=== PATIENT | male | born 1945 | race Caucasian/White ===

== ENCOUNTER 2018-01-22 16:17 | Inpatient (IN) ==
[2018-01-22] MEDS ORDERED: Nitroglycerin 0.4 MG TAB.SUBL SL PRN (17:07)
[2018-01-22] MEDS ORDERED: Ipratropium/Albuterol Neb 3 ML IH PRN (17:09)
[2018-01-22] MEDS ORDERED: Cyanocobalamin (B-12) 1,000 MCG/ML VIAL IM ONE (17:14)
[2018-01-22] MEDS ORDERED: NIVOLUMAB 100 MG/10 ML IV SCH (17:30)
[2018-01-22] MEDS: Insulin LISPRO 300 UNITS/3 ML VIAL SQ SCH (20:46)
[2018-01-22] MEDS: Azelastine 0.1% Nasal Spray 30 ML BOTTLE NS SCH (20:56)
[2018-01-22] MEDS: OLOPATADINE AER SCH (22:37)
[2018-01-23] MEDS: Aspirin 81 MG TAB.CHEW PO SCH (08:18)
[2018-01-23] MEDS: predniSONE 20 MG TABLET PO SCH (08:18)
[2018-01-23] MEDS: Cholecalciferol (D-3) 1,000 UNIT TABLET PO SCH (08:18)
[2018-01-23] MEDS: Metoprolol XL (24 HR) Succ 50 MG TAB.ER.24H PO SCH (08:18)
[2018-01-23] MEDS: levoFLOXacin 500 MG TABLET PO SCH (08:18)
[2018-01-23] MEDS: Azelastine 0.1% Nasal Spray 30 ML BOTTLE NS SCH ×2 (08:18→20:38)
[2018-01-23] MEDS: SAXAGLIPTIN PO SCH (08:19)
[2018-01-23] MEDS: OLOPATADINE AER SCH ×2 (08:19→20:41)
[2018-01-23] MEDS: Insulin LISPRO 300 UNITS/3 ML VIAL SQ SCH ×2 (08:20→20:37)
[2018-01-23] MEDS: Insulin DETEMIR 100 UNIT/ML X5UNITS SQ SCH (08:20)
--- NOTE | 2018-01-23 16:16 | Internal Med History&Physical ---
Date of Encounter: 01/23/18 Time of Encounter: 15:30 Assessment and Plan (1) STEMI (ST elevation myocardial infarction) Current visit: No Status: Acute Continue aspirin and Plavix. Will add Imdur Qualifiers: Involved coronary artery: unspecified coronary artery Qualified Code(s): I21.3 - ST elevation (STEMI) myocardial infarction of unspecified site (2) Hypophosphatemia Current visit: Yes Status: Acute Phosphorus level was 2.1 on 01/20/2018. Recheck in a.m. (3) Macrocytic anemia Current visit: No Status: Chronic Order anemia testing in a.m. (4) Non-small cell cancer of right lung Current visit: No Status: Chronic As per oncologist. (5) PAF (paroxysmal atrial fibrillation) Current visit: No Status: Acute Withhold anticoagulation secondary to lung cancer and recent bleed. Continue aspirin and Plavix. (6) EL treated with BiPAP Current visit: No Status: Acute Continue BiPAP. (7) Physical deconditioning Current visit: Yes Status: Acute He will have PT and OT evaluations ongoing intervention. 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 Continue oxygen 30/11. (9) DM type 2 (diabetes mellitus, type 2) Current visit: Yes Status: Chronic Hemoglobin A1c was 10.5% on 01/17/2018. Continue Lantus/Levemir and do Accu- Cheks with SSI. Qualifiers: Diabetes mellitus senior living insulin use: with terminal operations supervisor use Diabetes mellitus complication status: with unspecified complications Qualified Code(s) : E11.8 - Type 2 diabetes mellitus with unspecified complications; Z79.4 - care home (current) use of insulin (10) Gout Current visit: Yes Status: Chronic Check uric acid level in a.m. Qualifiers: Gout site: unspecified site Gout etiology: unspecified cause Chronicity: chronic Presence of tophus: without tophus Qualified Code(s): M1A.9XX0 - Chronic gout, unspecified, without tophus (tophi) (11) Elevated brain natriuretic peptide (BNP) level Current visit: Yes Status: Acute Elevated at 326 on 02/15/2015. Recheck in a.m. Internal Medicine - H&P: HPI Chief complaint: STEMI, weakness Admitted From: Hospital to Hospital Transfer Plans for Post Hospital Care: Home History of present illness: Mr. Roldan is a 72 year old male who was hospitalized at [facility] January 17 after presenting with STEMI. He underwent LHC which showed thrombus causing 60 % stenosis in the SVG to RPDA graft. The LIND to mid LAD was patent. The SVG to first marginal was patent. [place] vessels showed 70% stenosis in LMCA, 50% stenosis in proximal circumflex, and 100% stenoses in proximal RCA and proximal LAD. He was given IV Aggrastat for 24 hours and continued on Brilinta. No additional intervention was done. He had an 18 beat run of NSVT. Following stabilization he was transferred to [facility] swing bed for rehabilitation therapy. He had 3 vessel CABG 2001. He reports 2 coronary stents were placed in 1999. He had DVT and was on anticoagulation following the CABG surgery. He has paroxysmal atrial fibrillation and was on Eliquis but this is been discontinued because of lung cancer and recent hematuria. Echocardiogram was attempted during recent [facility] stay but there was poor visualization overall. LV systolic function appeared grossly normal although multiple LV wall segments were not well visualized. Past Med Surg Social Fam HX - Past Medical History Medical history: cancer, coronary artery disease, DVT, diabetes, hyperlipidemia , hypertension, migraine, myocardial infarction, other Additional medical history: EL Psychiatric history: no psych history - Past Surgical History Surgical History: cataract, coronary bypass (CABG), orthopedic, other, other Additional surgical history: cardioversion. cardiac ablation. tonsillectomy - Social History Smoking Status: Former smoker Smokeless Tobacco Status: No Alcohol use: none, recent Drug use: none - Family History Mother Adopted: Yes Family Member Ethnicity: Non- Living Status: Hx Family Cardiac Disorders: No Hx Family Respiratory Disorders: No Hx Family Cancer: Yes (ovarian/uterine) Hx Family GI Disorders: Yes (diverticulitis) Hx Family Endocrine Disorder: No Hx Family Neuromuscular Disorders: No Hx Family Neurologic Disorders: No Hx Family HEENT Disorders: No Hx Family Autoimmune Disorders: Yes (psoriasis) Internal Medicine - H&P: Meds Nitroglycerin [Nitrostat] 0.4 mg SL PRN PRN 03/25/15 [History] Ergocalciferol (VITAMIN D2) [Vitamin D2 (50,000 UNIT)] 50,000 unit PO QWEEK [History] Aspirin 81 mg PO DAILY 09/23/15 [History] Cyanocobalamin (B-12) [Vitamin B12] 1,000 mcg IM QMONTH 07/23/16 [History] Insulin Lispro Protamin/Lispro [Humalog Mix 75-25 Vial] 12 unit SQ QAM 07/23/16 [History] Insulin Lispro Protamin/Lispro [Humalog Mix 75-25 Vial] 12 unit SQ QPM 07/23/16 [History] Ipratropium/Albuterol Neb [Duoneb] 3 ml IH Q6HR PRN 07/23/16 [History] Saxagliptin HCl [Onglyza] 2.5 mg PO DAILY 07/23/16 [History] Insulin Glargine,Hum.rec.anlog [Lantus Solostar] 42 unit SQ QAM 01/12/17 [ History] Azelastine 0.1% Nasal [place] [Astelin] 1 puff NS BID 11/16/17 [History] Oxycodone HCl/Acetaminophen [Percocet 5-325 mg Tablet] 1 each PO Q6HR PRN [History] Albuterol Sulfate [Ventolin Hfa] 2 puff IH Q6H PRN 01/18/18 [History] Levothyroxine [Synthroid] 150 mcg PO DAILY #30 tablet 01/18/18 [Rx] Nivolumab [Opdivo] 40 mg IV QMONTH 01/18/18 [History] Olopatadine HCl [Patanase] 30.5 gm NS BID 01/18/18 [History] Clopidogrel [Plavix] 75 mg PO DAILY tablet 01/22/18 [Rx] levoFLOXacin [Levaquin] 500 mg PO Q24H #5 tablet 01/22/18 [Rx] predniSONE [PredniSONE] 20 mg PO DAILY 5 Days tablet 01/22/18 [Rx] Bumetanide [Bumex] 2 mg PO BID 01/23/18 [History] Metoprolol XL (24 HR) Succ [Toprol Xl] 200 mg PO DAILY 01/23/18 [History] 3 Allergy/AdvReac Type Severity Reaction Status Date / Time Amoxicillin Allergy Hives Verified 01/17/18 18:39 adhesive AdvReac Rash Verified 01/17/18 18:39 All Systems PM: A 10-system review of systems was performed and is negative for pertinent findings except as documented above in the HPI. Review of systems: Gen.: His weight has been stable the past few months Cardiovascular: As per history of present illness Respiratory: He smoked from approximately age [age] up to one pack per day. PFTs done 07/10/2016 reportedly showed severe airway restrictive disease with severe decrease in DLCO. Raw test data results are not available. He has been diagnosed with interstitial lung disease and is on oxygen 30/11. He has been diagnosed with EL and uses CPAP at bedtime and when necessary during the daytime. He was diagnosed with non-small cell lung cancer October 2015. He received treatment but recently learned that tumor has recurred and has metastasized to liver. GI: He denies disorders of liver gallbladder or exocrine pancreas otherwise. : He had recent hematuria and will follow with urology as an outpatient. He has indwelling Duvall catheter at this time. He denies other kidney bladder prostate disorders. Neurologic: He has diabetic peripheral neuropathy. He denies large distribution strokes or seizures. Endocrine: He was diagnosed with DM 2 1996. He has hypothyroidism. He has hyperlipidemia but cannot tolerate numerous medications. Hematology/oncology: He has non-small cell lung cancer as per above. He has anemia. He denies other malignancies or blood disorders. Psychiatric: He denies anxiety depression or other mental health issues. [place] skeletal: He has DJD and history of gout. He denies other bone joint or muscle disorders. - Constitutional Vitals: Temp Pulse Resp BP Pulse Ox 97.8 F 84 18 139/72 97 01/23/18 08:15 01/23/18 08:15 01/23/18 09:07 01/23/18 08:15 01/23/18 09:07 Exam: Gen.: He is well-developed morbidly obese male lying in bed who appears slightly dyspneic at rest HEENT: Head is atraumatic and normocephalic. Eyes: EOMI. There is no scleral icterus. Mouth: Mucosa is moist. Neck: Supple and nontender. There is no thyromegaly or adenopathy noted. Heart: Regular without murmurs gallops or ectopics. Lungs: No wheezes or crackles are heard. Abdomen: He has a large abdomen. It is nontender to palpation. Extremities: He has chronic venous stasis erythema of his lower legs. Dorsalis pedis and posttibial pulses are trace palpable bilaterally. He has mild DJD changes of his hands. He has multiple ecchymosis scattered on his extremities. Neurologic: Mental status: He is talkative and a good historian. Cranial nerves : Smile is symmetric. Forehead wrinkles bilaterally. Tongue protrudes midline. EOMI. Motor: There is no pronator drift. Cerebellar: Finger to nose is intact bilaterally. Skin: Warm and dry
[2018-01-24 07:01] LABS: Basophils # 0.1 K/mcL (0.0-0.2); Basophils % 0.8 %; Eosinophils # 0.4 K/mcL (0.0-0.6); Eosinophils % 3.5 %; Hematocrit 37.7 % (37.5-50.1); Hemoglobin 12.1 g/dL (12.9-16.9); Immature Granulocytes % 1.5 % (0-4); Lymphocytes % 18.6 %; Mean Corpuscular HGB Conc 32.1 g/dL (31.6-35.5); Mean Corpuscular Volume 96.7 fL (83.0-100.0); Mean Platelet Volume 8.7 fL (9.4-12.4); Monocytes # 1.2 K/mcL (0.0-1.3); Monocytes % 11.5 %; Neutrophils # 6.8 K/mcL (1.6-8.9); Nucleated Red Blood Cells 0.4 /100 WBC (0); Platelet Count 465 K/mcL (140-400); Red Cell Distribution Width 16.1 % (11.5-14.5); Segmented Neutrophils % 64.1 %
[2018-01-24 07:39] LABS: Phosphorous 2.4 mg/dL (2.7-4.5); Uric Acid 4.3 mg/dL (2.3-7.6)
[2018-01-24] MEDS: Metoprolol XL (24 HR) Succ 50 MG TAB.ER.24H PO SCH (09:18)
[2018-01-24] MEDS: Aspirin 81 MG TAB.CHEW PO SCH (09:18)
[2018-01-24] MEDS: Isosorbide MONOnitrate (24 HR) 30 MG TAB.ER.24H PO SCH (09:19)
[2018-01-24] MEDS: levoFLOXacin 500 MG TABLET PO SCH (09:19)
[2018-01-24] MEDS: predniSONE 20 MG TABLET PO SCH (09:19)
[2018-01-24] MEDS: Cholecalciferol (D-3) 1,000 UNIT TABLET PO SCH (09:19)
[2018-01-24] MEDS: Insulin LISPRO 300 UNITS/3 ML VIAL SQ SCH ×2 (09:19→20:59)
[2018-01-24] MEDS: Azelastine 0.1% Nasal Spray 30 ML BOTTLE NS SCH ×2 (09:19→21:36)
[2018-01-24] MEDS: OLOPATADINE AER SCH ×2 (09:20→21:00)
[2018-01-24] MEDS: SAXAGLIPTIN PO SCH (09:20)
[2018-01-24] MEDS: Insulin DETEMIR 100 UNIT/ML X5UNITS SQ SCH (09:20)
[2018-01-24 09:55] LABS: Folate 12.9 ng/mL (3.0-16.0)
[2018-01-24 10:20] LABS: Vitamin B12 > 1500 pg/mL (250-1100)
[2018-01-24] MEDS: *HR* OxyCODONE/APAP 5/325 TABLET PO PRN ×2 (15:19→21:35)
--- NOTE | 2018-01-24 18:27 | Internal Med Progress Note ---
Date of Encounter: 01/24/18 Time of Encounter: 18:20 - Assessment and plan (1) STEMI (ST elevation myocardial infarction) Current Visit: No Status: Acute Assessment and plan: January 24. Continue aspirin, Plavix, and now Imdur. Qualifiers: Involved coronary artery: unspecified coronary artery Qualified Code(s): I21.3 - ST elevation (STEMI) myocardial infarction of unspecified site (2) Hypophosphatemia Current Visit: Yes Status: Acute Assessment and plan: January 24. Improved to 2.4. Continue to monitor as needed. (3) Macrocytic anemia Current Visit: No Status: Chronic Assessment and plan: January 24. Anemia testing showed iron 61, transferrin saturation 25%, transferrin 174, ferritin 310, B12 > 1500, and folate 12.9. Hemoglobin improved to 12.1. Continue to monitor as needed. (4) Non-small cell cancer of right lung Current Visit: No Status: Chronic Assessment and plan: January 24. As per oncologist. (5) PAF (paroxysmal atrial fibrillation) Current Visit: No Status: Acute Assessment and plan: January 24. Continue aspirin and Plavix. (6) EL treated with BiPAP Current Visit: No Status: Acute Assessment and plan: January 24. Continue BiPAP (7) Physical deconditioning Current Visit: Yes Status: Acute Assessment and plan: January 24. Continue therapy intervention. (8) Interstitial lung disease Current Visit: Yes Status: Acute Assessment and plan: January 24. Continue oxygen 30/11. (9) DM type 2 (diabetes mellitus, type 2) Current Visit: Yes Status: Chronic Assessment and plan: January 24. Continue Lantus/Levemir and Accu-Cheks with SSI. Qualifiers: Diabetes mellitus prison insulin use: with oysterman use Diabetes mellitus complication status: with unspecified complications Qualified Code(s) : E11.8 - Type 2 diabetes mellitus with unspecified complications; Z79.4 - assisted (current) use of insulin (10) Gout Current Visit: Yes Status: Chronic Assessment and plan: January 24. Uric acid level normal at 4.3. Qualifiers: Gout site: unspecified site Gout etiology: unspecified cause Chronicity: chronic Presence of tophus: without tophus Qualified Code(s): M1A.9XX0 - Chronic gout, unspecified, without tophus (tophi) (11) Elevated brain natriuretic peptide (BNP) level Current Visit: Yes Status: Acute Assessment and plan: January 24. Improved at 236. Continue present management - Subjective Interval history: January 24. He has no new complaints and feels well. - Constitutional Vitals: Temp Pulse Resp BP Pulse Ox 98.5 F 77 12 131/81 95 01/24/18 07:22 01/24/18 07:22 01/24/18 17:08 01/24/18 07:22 01/24/18 17:08 Exam: He is resting comfortably sitting on the side of bed. His affect is bright and cheerful. I reviewed his medications and lab results. Internal Medicine: Result - Labs CBC & Chem 7: 01/24/18 06:51 Labs: Short CBC 01/24/18 Range/Units 06:51 WBC 10.7 (4.3-11.1) K/mcL Hgb 12.1 L (12.9-16.9) g/dL Hct 37.7 (37.5-50.1) % Plt Count 465 H (140-400) K/mcL Neutrophils # 6.8 (1.6-8.9) K/mcL Consult Discharge Plan - Plan Referrals: Kd Moore [Primary Care Provider] - 1 week
[2018-01-25] MEDS: *HR* OxyCODONE/APAP 5/325 TABLET PO PRN ×3 (05:35→21:29)
[2018-01-25] MEDS: Aspirin 81 MG TAB.CHEW PO SCH (08:39)
[2018-01-25] MEDS: levoFLOXacin 500 MG TABLET PO SCH (08:39)
[2018-01-25] MEDS: Metoprolol XL (24 HR) Succ 50 MG TAB.ER.24H PO SCH (08:39)
[2018-01-25] MEDS: predniSONE 20 MG TABLET PO SCH (08:39)
[2018-01-25] MEDS: Isosorbide MONOnitrate (24 HR) 30 MG TAB.ER.24H PO SCH (08:39)
[2018-01-25] MEDS: SAXAGLIPTIN PO SCH (08:40)
[2018-01-25] MEDS: OLOPATADINE AER SCH ×2 (08:40→21:30)
[2018-01-25] MEDS: Cholecalciferol (D-3) 1,000 UNIT TABLET PO SCH (08:40)
[2018-01-25] MEDS: Azelastine 0.1% Nasal Spray 30 ML BOTTLE NS SCH ×2 (08:40→21:29)
[2018-01-25] MEDS: Insulin LISPRO 300 UNITS/3 ML VIAL SQ SCH ×2 (08:43→21:30)
[2018-01-25] MEDS: Insulin DETEMIR 100 UNIT/ML X5UNITS SQ SCH (08:49)
[2018-01-26] MEDS: Aspirin 81 MG TAB.CHEW PO SCH (09:19)
[2018-01-26] MEDS: Metoprolol XL (24 HR) Succ 50 MG TAB.ER.24H PO SCH (09:19)
[2018-01-26] MEDS: Azelastine 0.1% Nasal Spray 30 ML BOTTLE NS SCH ×2 (09:19→21:11)
[2018-01-26] MEDS: predniSONE 20 MG TABLET PO SCH (09:19)
[2018-01-26] MEDS: Isosorbide MONOnitrate (24 HR) 30 MG TAB.ER.24H PO SCH (09:19)
[2018-01-26] MEDS: levoFLOXacin 500 MG TABLET PO SCH (09:20)
[2018-01-26] MEDS: Cholecalciferol (D-3) 1,000 UNIT TABLET PO SCH (09:20)
[2018-01-26] MEDS: Insulin LISPRO 300 UNITS/3 ML VIAL SQ SCH ×2 (09:23→21:13)
[2018-01-26] MEDS: Insulin DETEMIR 100 UNIT/ML X5UNITS SQ SCH (09:23)
[2018-01-26] MEDS: *HR* OxyCODONE/APAP 5/325 TABLET PO PRN ×2 (09:27→18:53)
[2018-01-26] MEDS: SAXAGLIPTIN PO SCH (11:03)
[2018-01-26] MEDS: OLOPATADINE AER SCH ×2 (11:03→21:15)
--- NOTE | 2018-01-26 17:47 | Internal Med Progress Note ---
Date of Encounter: 01/26/18 Time of Encounter: 17:30 - Assessment and plan (1) STEMI (ST elevation myocardial infarction) Current Visit: No Status: Acute Assessment and plan: January 24. Continue aspirin, Plavix, and now Imdur. Qualifiers: Involved coronary artery: unspecified coronary artery Qualified Code(s): I21.3 - ST elevation (STEMI) myocardial infarction of unspecified site (2) Hypophosphatemia Current Visit: Yes Status: Acute Assessment and plan: January 24. Improved to 2.4. Continue to monitor as needed. (3) Macrocytic anemia Current Visit: No Status: Chronic Assessment and plan: January 24. Anemia testing showed iron 61, transferrin saturation 25%, transferrin 174, ferritin 310, B12 > 1500, and folate 12.9. Hemoglobin improved to 12.1. Continue to monitor as needed. (4) Non-small cell cancer of right lung Current Visit: No Status: Chronic Assessment and plan: January 24. As per oncologist. (5) PAF (paroxysmal atrial fibrillation) Current Visit: No Status: Acute Assessment and plan: January 24. Continue aspirin and Plavix. (6) EL treated with BiPAP Current Visit: No Status: Acute Assessment and plan: January 24. Continue BiPAP (7) Physical deconditioning Current Visit: Yes Status: Acute Assessment and plan: January 24. Continue therapy intervention. (8) Interstitial lung disease Current Visit: Yes Status: Acute Assessment and plan: January 24. Continue oxygen 30/11. (9) DM type 2 (diabetes mellitus, type 2) Current Visit: Yes Status: Chronic Assessment and plan: January 24. Continue Lantus/Levemir and Accu-Cheks with SSI. Qualifiers: Diabetes mellitus halfway insulin use: with oil heaterman use Diabetes mellitus complication status: with unspecified complications Qualified Code(s) : E11.8 - Type 2 diabetes mellitus with unspecified complications; Z79.4 - [facility] (current) use of insulin (10) Gout Current Visit: Yes Status: Chronic Assessment and plan: January 24. Uric acid level normal at 4.3. Qualifiers: Gout site: unspecified site Gout etiology: unspecified cause Chronicity: chronic Presence of tophus: without tophus Qualified Code(s): M1A.9XX0 - Chronic gout, unspecified, without tophus (tophi) (11) Elevated brain natriuretic peptide (BNP) level Current Visit: Yes Status: Acute Assessment and plan: January 24. Improved at 236. Continue present management - Subjective Interval history: January 24. He has no new complaints and feels well. January 26. He has no new complaints and feels overall improved. - Constitutional Vitals: Temp Pulse Resp BP Pulse Ox 97.5 F L 80 18 123/66 95 01/26/18 07:09 01/26/18 07:09 01/26/18 10:31 01/26/18 07:09 01/26/18 10:31 Exam: He is resting Me on the side of bed and appears in no acute distress. The venous stasis erythema has not significantly changed. He does not appear dyspneic. I reviewed his medications and lab results. Internal Medicine: Result - Labs CBC & Chem 7: 01/24/18 06:51 Consult Discharge Plan - Plan Referrals: Kd Moore [Primary Care Provider] - 1 week
[2018-01-26] MEDS: Ammonium Lactate 30 APPL/225 GM BOTTLE TP SCH (21:19)
[2018-01-27 08:34] LABS: Basophils # 0.1 K/mcL (0.0-0.2); Basophils % 0.8 %; Eosinophils # 0.5 K/mcL (0.0-0.6); Eosinophils % 4.6 %; Hematocrit 38.6 % (37.5-50.1); Hemoglobin 12.3 g/dL (12.9-16.9); Immature Granulocytes % 1.6 % (0-4); Lymphocytes % 17.2 %; Mean Corpuscular HGB Conc 31.9 g/dL (31.6-35.5); Mean Corpuscular Hemoglobin 31.4 pg (28.0-33.3); Mean Corpuscular Volume 98.5 fL (83.0-100.0); Monocytes # 1.1 K/mcL (0.0-1.3); Monocytes % 9.9 %; Neutrophils # 7.5 K/mcL (1.6-8.9); Platelet Count 437 K/mcL (140-400); Red Blood Count 3.92 M/mcL (4.19-5.50); Red Cell Distribution Width 16.3 % (11.5-14.5); Segmented Neutrophils % 65.9 %
[2018-01-27 08:35] LABS: Lymphocytes # 1.9 K/mcL (0.6-4.6)
[2018-01-27 08:42] LABS: BUN/Creatinine Ratio 22 (6-26); Blood Urea Nitrogen 18 mg/dL (8-23); Calcium 10.3 mg/dL (8.6-10.3); Carbon Dioxide 33 mEq/L (23-29); Chloride 99 mEq/L (98-107); Glucose 163 mg/dL (70-105); Osmolality,Calculated 293 (280-300); Potassium 3.5 mEq/L (3.5-5.1); Sodium 139 mEq/L (136-145); eGFR For Non-African Americans > 60 (> 60)
[2018-01-27] MEDS: Cholecalciferol (D-3) 1,000 UNIT TABLET PO SCH (09:19)
[2018-01-27] MEDS: predniSONE 20 MG TABLET PO SCH (09:19)
[2018-01-27] MEDS: Metoprolol XL (24 HR) Succ 50 MG TAB.ER.24H PO SCH (09:19)
[2018-01-27] MEDS: Azelastine 0.1% Nasal Spray 30 ML BOTTLE NS SCH ×2 (09:19→21:32)
[2018-01-27] MEDS: Aspirin 81 MG TAB.CHEW PO SCH (09:19)
[2018-01-27] MEDS: Isosorbide MONOnitrate (24 HR) 30 MG TAB.ER.24H PO SCH (09:20)
[2018-01-27] MEDS: *HR* OxyCODONE/APAP 5/325 TABLET PO PRN ×3 (09:20→22:22)
[2018-01-27] MEDS: levoFLOXacin 500 MG TABLET PO SCH (09:21)
[2018-01-27] MEDS: Insulin DETEMIR 100 UNIT/ML X5UNITS SQ SCH (09:22)
[2018-01-27] MEDS: OLOPATADINE AER SCH ×2 (09:22→21:54)
[2018-01-27] MEDS: SAXAGLIPTIN PO SCH (09:22)
[2018-01-27] MEDS: Insulin NPH/REG 70/30 100 UNIT/ML (x5UNIT) SQ SCH ×2 (09:42→09:50)
[2018-01-27] MEDS: Insulin LISPRO 300 UNITS/3 ML VIAL SQ SCH (21:30)
[2018-01-27] MEDS: Ammonium Lactate 30 APPL/225 GM BOTTLE TP SCH (21:33)
[2018-01-28] MEDS: Isosorbide MONOnitrate (24 HR) 30 MG TAB.ER.24H PO SCH (07:56)
[2018-01-28] MEDS: Azelastine 0.1% Nasal Spray 30 ML BOTTLE NS SCH ×2 (07:56→21:36)
[2018-01-28] MEDS: Cholecalciferol (D-3) 1,000 UNIT TABLET PO SCH (07:56)
[2018-01-28] MEDS: Aspirin 81 MG TAB.CHEW PO SCH (07:57)
[2018-01-28] MEDS: levoFLOXacin 500 MG TABLET PO SCH (07:58)
[2018-01-28] MEDS: Metoprolol XL (24 HR) Succ 50 MG TAB.ER.24H PO SCH (07:58)
[2018-01-28] MEDS: predniSONE 20 MG TABLET PO SCH (07:58)
[2018-01-28] MEDS: SAXAGLIPTIN PO SCH (07:58)
[2018-01-28] MEDS: OLOPATADINE AER SCH ×2 (07:58→23:16)
[2018-01-28] MEDS: *HR* OxyCODONE/APAP 5/325 TABLET PO PRN (10:06)
[2018-01-28] MEDS: Insulin NPH/REG 70/30 100 UNIT/ML (x5UNIT) SQ SCH (10:08)
[2018-01-28] MEDS: Insulin DETEMIR 100 UNIT/ML X5UNITS SQ SCH (10:09)
[2018-01-28] MEDS: Ammonium Lactate 30 APPL/225 GM BOTTLE TP SCH (21:36)
[2018-01-28] MEDS: Insulin LISPRO 300 UNITS/3 ML VIAL SQ SCH (21:37)
[2018-01-29] MEDS: *HR* OxyCODONE/APAP 5/325 TABLET PO PRN ×2 (08:44→15:23)
[2018-01-29] MEDS: predniSONE 20 MG TABLET PO SCH (08:45)
[2018-01-29] MEDS: Metoprolol XL (24 HR) Succ 50 MG TAB.ER.24H PO SCH (08:45)
[2018-01-29] MEDS: levoFLOXacin 500 MG TABLET PO SCH (08:45)
[2018-01-29] MEDS: Aspirin 81 MG TAB.CHEW PO SCH (08:45)
[2018-01-29] MEDS: Azelastine 0.1% Nasal Spray 30 ML BOTTLE NS SCH ×2 (08:46→21:39)
[2018-01-29] MEDS: Isosorbide MONOnitrate (24 HR) 30 MG TAB.ER.24H PO SCH (08:46)
[2018-01-29] MEDS: Cholecalciferol (D-3) 1,000 UNIT TABLET PO SCH (08:46)
[2018-01-29] MEDS: Insulin DETEMIR 100 UNIT/ML X5UNITS SQ SCH (08:47)
[2018-01-29] MEDS: Insulin NPH/REG 70/30 100 UNIT/ML (x5UNIT) SQ SCH (08:48)
[2018-01-29] MEDS: SAXAGLIPTIN PO SCH (12:27)
[2018-01-29] MEDS: OLOPATADINE AER SCH ×2 (12:27→23:01)
[2018-01-29] MEDS: Ammonium Lactate 30 APPL/225 GM BOTTLE TP SCH (21:40)
[2018-01-29] MEDS: Insulin LISPRO 300 UNITS/3 ML VIAL SQ SCH (21:41)
[2018-01-30] MEDS: Aspirin 81 MG TAB.CHEW PO SCH (09:48)
[2018-01-30] MEDS: predniSONE 20 MG TABLET PO SCH (09:48)
[2018-01-30] MEDS: Metoprolol XL (24 HR) Succ 50 MG TAB.ER.24H PO SCH (09:48)
[2018-01-30] MEDS: *HR* OxyCODONE/APAP 5/325 TABLET PO PRN (09:49)
[2018-01-30] MEDS: Cholecalciferol (D-3) 1,000 UNIT TABLET PO SCH (09:49)
[2018-01-30] MEDS: Isosorbide MONOnitrate (24 HR) 30 MG TAB.ER.24H PO SCH (09:49)
[2018-01-30] MEDS: levoFLOXacin 500 MG TABLET PO SCH (09:49)
[2018-01-30] MEDS: OLOPATADINE AER SCH (09:50)
[2018-01-30] MEDS: Azelastine 0.1% Nasal Spray 30 ML BOTTLE NS SCH ×2 (09:51→21:51)
[2018-01-30] MEDS: SAXAGLIPTIN PO SCH (09:51)
[2018-01-30] MEDS: Insulin NPH/REG 70/30 100 UNIT/ML (x5UNIT) SQ SCH (09:53)
[2018-01-30] MEDS: Insulin DETEMIR 100 UNIT/ML X5UNITS SQ SCH (09:53)
--- NOTE | 2018-01-30 11:36 | Internal Med Progress Note ---
Date of Encounter: 01/30/18 Time of Encounter: 11:25 - Assessment and plan (1) STEMI (ST elevation myocardial infarction) Current Visit: No Status: Acute Assessment and plan: January 24. Continue aspirin, Plavix, and now Imdur. Qualifiers: Involved coronary artery: unspecified coronary artery Qualified Code(s): I21.3 - ST elevation (STEMI) myocardial infarction of unspecified site (2) Hypophosphatemia Current Visit: Yes Status: Acute Assessment and plan: January 24. Improved to 2.4. Continue to monitor as needed. January 30. Recheck labs in a.m. (3) Macrocytic anemia Current Visit: No Status: Chronic Assessment and plan: January 24. Anemia testing showed iron 61, transferrin saturation 25%, transferrin 174, ferritin 310, B12 > 1500, and folate 12.9. Hemoglobin improved to 12.1. Continue to monitor as needed. (4) Non-small cell cancer of right lung Current Visit: No Status: Chronic Assessment and plan: January 24. As per oncologist. (5) PAF (paroxysmal atrial fibrillation) Current Visit: No Status: Acute Assessment and plan: January 24. Continue aspirin and Plavix. (6) EL treated with BiPAP Current Visit: No Status: Acute Assessment and plan: January 24. Continue BiPAP (7) Physical deconditioning Current Visit: Yes Status: Acute Assessment and plan: January 24. Continue therapy intervention. (8) Interstitial lung disease Current Visit: Yes Status: Acute Assessment and plan: January 24. Continue oxygen 24/7. (9) DM type 2 (diabetes mellitus, type 2) Current Visit: Yes Status: Chronic Assessment and plan: January 24. Continue Lantus/Levemir and Accu-Cheks with SSI. January 30. He was started on 70/30 insulin a few days ago to better control daytime glucose readings. Dose will be increased and Lantus/Levemir dose slightly reduced. Qualifiers: Diabetes mellitus longterm insulin use: with longterm use Diabetes mellitus complication status: with unspecified complications Qualified Code(s) : E11.8 - Type 2 diabetes mellitus with unspecified complications; Z79.4 - [facility] (current) use of insulin (10) Gout Current Visit: Yes Status: Chronic Assessment and plan: January 24. Uric acid level normal at 4.3. Qualifiers: Gout site: unspecified site Gout etiology: unspecified cause Chronicity: chronic Presence of tophus: without tophus Qualified Code(s): M1A.9XX0 - Chronic gout, unspecified, without tophus (tophi) (11) Elevated brain natriuretic peptide (BNP) level Current Visit: Yes Status: Acute Assessment and plan: January 24. Improved at 236. Continue present management January 30. Recheck labs in a.m. - Subjective Interval history: January 24. He has no new complaints and feels well. January 26. He has no new complaints and feels overall improved. January 28. He has no new complaints. - Constitutional Vitals: Temp Pulse Resp BP Pulse Ox 98.6 F 86 16 148/73 96 01/30/18 07:06 01/30/18 07:06 01/30/18 10:18 01/30/18 07:06 01/30/18 10:18 Exam: He is resting comfortably in bed and appears in no acute distress. His affect is cheerful. I reviewed his medications and lab results. Internal Medicine: Result - Labs CBC & Chem 7: 01/27/18 08:00 01/27/18 08:00 Consult Discharge Plan - Plan Referrals: Kd Moore [Primary Care Provider] - 1 week
[2018-01-30] MEDS ORDERED: Insulin NPH/REG 70/30 100 UNIT/ML (x5UNIT) SQ ONE (12:45)
[2018-01-30] MEDS: Ammonium Lactate 30 APPL/225 GM BOTTLE TP SCH (21:52)
[2018-01-30] MEDS: Insulin LISPRO 300 UNITS/3 ML VIAL SQ SCH (21:52)
[2018-01-31] MEDS: OLOPATADINE AER SCH ×3 (01:48→21:42)
[2018-01-31 06:16] LABS: Basophils # 0.1 K/mcL (0.0-0.2); Basophils % 0.8 %; Eosinophils # 0.2 K/mcL (0.0-0.6); Eosinophils % 2.2 %; Hematocrit 35.5 % (37.5-50.1); Hemoglobin 11.1 g/dL (12.9-16.9); Immature Granulocytes % 1.6 % (0-4); Lymphocytes % 18.3 %; Mean Corpuscular HGB Conc 31.3 g/dL (31.6-35.5); Mean Corpuscular Hemoglobin 30.6 pg (28.0-33.3); Mean Corpuscular Volume 97.8 fL (83.0-100.0); Mean Platelet Volume 9.1 fL (9.4-12.4); Monocytes # 1.3 K/mcL (0.0-1.3); Monocytes % 11.8 %; Neutrophils # 7.1 K/mcL (1.6-8.9); Platelet Count 376 K/mcL (140-400); Red Blood Count 3.63 M/mcL (4.19-5.50); Red Cell Distribution Width 16.4 % (11.5-14.5); Segmented Neutrophils % 65.3 %
[2018-01-31 06:52] LABS: Alanine Aminotransferase 14 Units/L (7-52); Alkaline Phosphatase 69 Units/L (34-104); Aspartate Amino Transferase 12 Units/L (13-39); BUN/Creatinine Ratio 28 (6-26); Bilirubin,Total 0.5 mg/dL (0.3-1.0); Blood Urea Nitrogen 25 mg/dL (8-23); Calcium 9.8 mg/dL (8.6-10.3); Carbon Dioxide 33 mEq/L (23-29); Chloride 101 mEq/L (98-107); Globulin 2.9 g/dL (2.4-3.5); Glucose 160 mg/dL (70-105); Osmolality,Calculated 302 (280-300); Potassium 3.7 mEq/L (3.5-5.1); Sodium 142 mEq/L (136-145); Total Protein 5.9 g/dL (6.4-8.9); eGFR For Non-African Americans > 60 (> 60)
[2018-01-31] MEDS: Azelastine 0.1% Nasal Spray 30 ML BOTTLE NS SCH ×2 (08:34→21:42)
[2018-01-31] MEDS: Isosorbide MONOnitrate (24 HR) 30 MG TAB.ER.24H PO SCH (08:35)
[2018-01-31] MEDS: Aspirin 81 MG TAB.CHEW PO SCH (08:35)
[2018-01-31] MEDS: *HR* OxyCODONE/APAP 5/325 TABLET PO PRN (08:35)
[2018-01-31] MEDS: Cholecalciferol (D-3) 1,000 UNIT TABLET PO SCH (08:35)
[2018-01-31] MEDS: predniSONE 20 MG TABLET PO SCH (08:35)
[2018-01-31] MEDS: Metoprolol XL (24 HR) Succ 50 MG TAB.ER.24H PO SCH (08:35)
[2018-01-31] MEDS: SAXAGLIPTIN PO SCH (08:36)
[2018-01-31] MEDS ORDERED: Insulin NPH/REG 70/30 100 UNIT/ML (x5UNIT) SQ SCH (09:00)
[2018-01-31] MEDS: Insulin DETEMIR 100 UNIT/ML X5UNITS SQ SCH (09:02)
--- NOTE | 2018-01-31 14:32 | Internal Med Progress Note ---
Date of Encounter: 01/31/18 Time of Encounter: 14:25 - Assessment and plan (1) STEMI (ST elevation myocardial infarction) Current Visit: No Status: Acute Assessment and plan: January 24. Continue aspirin, Plavix, and now Imdur. January 31. Increase Imdur. Continue aspirin and Plavix. Qualifiers: Involved coronary artery: unspecified coronary artery Qualified Code(s): I21.3 - ST elevation (STEMI) myocardial infarction of unspecified site (2) Hypophosphatemia Current Visit: Yes Status: Acute Assessment and plan: January 24. Improved to 2.4. Continue to monitor as needed. January 30. Recheck labs in a.m. January 31. Phosphorus level normal at 2.9. (3) Macrocytic anemia Current Visit: No Status: Chronic Assessment and plan: January 24. Anemia testing showed iron 61, transferrin saturation 25%, transferrin 174, ferritin 310, B12 > 1500, and folate 12.9. Hemoglobin improved to 12.1. Continue to monitor as needed. (4) Non-small cell cancer of right lung Current Visit: No Status: Chronic Assessment and plan: January 24. As per oncologist. (5) PAF (paroxysmal atrial fibrillation) Current Visit: No Status: Acute Assessment and plan: January 24. Continue aspirin and Plavix. (6) EL treated with BiPAP Current Visit: No Status: Acute Assessment and plan: January 24. Continue BiPAP (7) Physical deconditioning Current Visit: Yes Status: Acute Assessment and plan: January 24. Continue therapy intervention. (8) Interstitial lung disease Current Visit: Yes Status: Acute Assessment and plan: January 24. Continue oxygen 30/11. (9) DM type 2 (diabetes mellitus, type 2) Current Visit: Yes Status: Chronic Assessment and plan: January 24. Continue Lantus/Levemir and Accu-Cheks with SSI. January 30. He was started on 70/30 insulin a few days ago to better control daytime glucose readings. Dose will be increased and Lantus/Levemir dose slightly reduced. January 31. Increase 70/30 insulin and continue Accu-Cheks with SSI. Qualifiers: Diabetes mellitus termite exterminator helper insulin use: with usp use Diabetes mellitus complication status: with unspecified complications Qualified Code(s) : E11.8 - Type 2 diabetes mellitus with unspecified complications; Z79.4 - longterm (current) use of insulin (10) Gout Current Visit: Yes Status: Chronic Assessment and plan: January 24. Uric acid level normal at 4.3. Qualifiers: Gout site: unspecified site Gout etiology: unspecified cause Chronicity: chronic Presence of tophus: without tophus Qualified Code(s): M1A.9XX0 - Chronic gout, unspecified, without tophus (tophi) (11) Elevated brain natriuretic peptide (BNP) level Current Visit: Yes Status: Acute Assessment and plan: January 24. Improved at 236. Continue present management January 30. Recheck labs in a.m. January 31. Further improved to 203. Increase isosorbide as per above. - Subjective Interval history: January 24. He has no new complaints and feels well. January 26. He has no new complaints and feels overall improved. January 28. He has no new complaints. January 31. He has no new complaints - Constitutional Vitals: Temp Pulse Resp BP Pulse Ox 98.8 F 77 18 138/81 92 01/31/18 07:24 01/31/18 07:24 01/31/18 09:23 01/31/18 07:24 01/31/18 09:23 Exam: He is sitting on the side of bed resting comfortably. His affect is cheerful. I reviewed his medications and lab results. Internal Medicine: Result - Labs CBC & Chem 7: 01/31/18 05:55 01/31/18 05:55 Labs: Short CBC 01/31/18 Range/Units 05:55 WBC 10.9 (4.3-11.1) K/mcL Hgb 11.1 L (12.9-16.9) g/dL Hct 35.5 L (37.5-50.1) % Plt Count 376 (140-400) K/mcL Neutrophils # 7.1 (1.6-8.9) K/mcL BMP 01/31/18 05:55 Sodium 142 Potassium 3.7 Chloride 101 Carbon Dioxide 33 H BUN 25 H Creatinine 0.90 Glucose 160 H Calcium 9.8 Liver Function 01/31/18 Range/Units 05:55 Total Bilirubin 0.5 (0.3-1.0) mg/dL AST 12 L (13-39) Units/L ALT 14 (7-52) Units/L Alkaline Phosphatase 69 (34-104) Units/L Albumin 3.0 L (3.5-5.7) g/dL Consult Discharge Plan - Plan Referrals: Kd Moore [Primary Care Provider] - 1 week
[2018-01-31] MEDS: Insulin LISPRO 300 UNITS/3 ML VIAL SQ SCH (21:41)
[2018-01-31] MEDS: Ammonium Lactate 30 APPL/225 GM BOTTLE TP SCH (21:42)
[2018-02-01] MEDS: Cholecalciferol (D-3) 1,000 UNIT TABLET PO SCH (08:41)
[2018-02-01] MEDS: Aspirin 81 MG TAB.CHEW PO SCH (08:41)
[2018-02-01] MEDS: Isosorbide MONOnitrate (24 HR) 60 MG TAB.ER.24H PO SCH (08:41)
[2018-02-01] MEDS: predniSONE 20 MG TABLET PO SCH (08:42)
[2018-02-01] MEDS: Metoprolol XL (24 HR) Succ 50 MG TAB.ER.24H PO SCH (08:42)
[2018-02-01] MEDS: OLOPATADINE AER SCH ×2 (08:43→20:28)
[2018-02-01] MEDS: Azelastine 0.1% Nasal Spray 30 ML BOTTLE NS SCH ×2 (08:44→20:21)
[2018-02-01] MEDS: SAXAGLIPTIN PO SCH (08:44)
[2018-02-01] MEDS ORDERED: Insulin NPH/REG 70/30 100 UNIT/ML (x5UNIT) SQ SCH (09:00)
[2018-02-01] MEDS: Insulin DETEMIR 100 UNIT/ML X5UNITS SQ SCH (09:59)
[2018-02-01] MEDS: Insulin NPH/REG 70/30 100 UNIT/ML (x5UNIT) SQ SCH (10:00)
[2018-02-01] MEDS: *HR* OxyCODONE/APAP 5/325 TABLET PO PRN (11:12)
[2018-02-01] MEDS: Insulin LISPRO 300 UNITS/3 ML VIAL SQ SCH (20:21)
[2018-02-01] MEDS: Ammonium Lactate 30 APPL/225 GM BOTTLE TP SCH (20:23)
[2018-02-02] MEDS: Azelastine 0.1% Nasal Spray 30 ML BOTTLE NS SCH ×2 (09:55→21:05)
[2018-02-02] MEDS: Cholecalciferol (D-3) 1,000 UNIT TABLET PO SCH (09:55)
[2018-02-02] MEDS: Aspirin 81 MG TAB.CHEW PO SCH (09:55)
[2018-02-02] MEDS: *HR* OxyCODONE/APAP 5/325 TABLET PO PRN ×2 (09:55→15:56)
[2018-02-02] MEDS: Metoprolol XL (24 HR) Succ 50 MG TAB.ER.24H PO SCH (09:55)
[2018-02-02] MEDS: Isosorbide MONOnitrate (24 HR) 60 MG TAB.ER.24H PO SCH (09:55)
[2018-02-02] MEDS: predniSONE 20 MG TABLET PO SCH (09:55)
[2018-02-02] MEDS: Insulin DETEMIR 100 UNIT/ML X5UNITS SQ SCH (09:57)
[2018-02-02] MEDS: Insulin NPH/REG 70/30 100 UNIT/ML (x5UNIT) SQ SCH (09:57)
[2018-02-02] MEDS: OLOPATADINE AER SCH (09:59)
[2018-02-02] MEDS: SAXAGLIPTIN PO SCH (09:59)
[2018-02-02] MEDS: Loratadine/Pseudophed (12 HR) 1 EACH TABLET PO PRN (12:10)
[2018-02-02] MEDS: Insulin LISPRO 300 UNITS/3 ML VIAL SQ SCH (20:57)
[2018-02-02] MEDS: Ammonium Lactate 30 APPL/225 GM BOTTLE TP SCH (21:02)
[2018-02-03] MEDS: Insulin NPH/REG 70/30 100 UNIT/ML (x5UNIT) SQ SCH (08:10)
[2018-02-03] MEDS: Azelastine 0.1% Nasal Spray 30 ML BOTTLE NS SCH ×2 (08:12→20:40)
[2018-02-03] MEDS: Insulin DETEMIR 100 UNIT/ML X5UNITS SQ SCH (08:12)
[2018-02-03] MEDS: Cholecalciferol (D-3) 1,000 UNIT TABLET PO SCH (08:13)
[2018-02-03] MEDS: Aspirin 81 MG TAB.CHEW PO SCH (08:13)
[2018-02-03] MEDS: predniSONE 20 MG TABLET PO SCH (08:13)
[2018-02-03] MEDS: OLOPATADINE AER SCH ×2 (08:13→22:18)
[2018-02-03] MEDS: Metoprolol XL (24 HR) Succ 50 MG TAB.ER.24H PO SCH (08:15)
[2018-02-03] MEDS: SAXAGLIPTIN PO SCH (08:16)
[2018-02-03] MEDS: Isosorbide MONOnitrate (24 HR) 60 MG TAB.ER.24H PO SCH (08:16)
[2018-02-03] MEDS: *HR* OxyCODONE/APAP 5/325 TABLET PO PRN (11:07)
[2018-02-03] MEDS: Loratadine/Pseudophed (12 HR) 1 EACH TABLET PO PRN (11:07)
--- NOTE | 2018-02-03 18:55 | Internal Med Progress Note ---
Date of Encounter: 02/03/18 Time of Encounter: 18:15 - Assessment and plan (1) STEMI (ST elevation myocardial infarction) Current Visit: No Status: Acute Assessment and plan: January 24. Continue aspirin, Plavix, and now Imdur. January 31. Increase Imdur. Continue aspirin and Plavix. Qualifiers: Involved coronary artery: unspecified coronary artery Qualified Code(s): I21.3 - ST elevation (STEMI) myocardial infarction of unspecified site (2) Hypophosphatemia Current Visit: Yes Status: Acute Assessment and plan: January 24. Improved to 2.4. Continue to monitor as needed. January 30. Recheck labs in a.m. January 31. Phosphorus level normal at 2.9. (3) Macrocytic anemia Current Visit: No Status: Chronic Assessment and plan: January 24. Anemia testing showed iron 61, transferrin saturation 25%, transferrin 174, ferritin 310, B12 > 1500, and folate 12.9. Hemoglobin improved to 12.1. Continue to monitor as needed. (4) Non-small cell cancer of right lung Current Visit: No Status: Chronic Assessment and plan: January 24. As per oncologist. (5) PAF (paroxysmal atrial fibrillation) Current Visit: No Status: Acute Assessment and plan: January 24. Continue aspirin and Plavix. (6) EL treated with BiPAP Current Visit: No Status: Acute Assessment and plan: January 24. Continue BiPAP (7) Physical deconditioning Current Visit: Yes Status: Acute Assessment and plan: January 24. Continue therapy intervention. (8) Interstitial lung disease Current Visit: Yes Status: Acute Assessment and plan: January 24. Continue oxygen 30/11. (9) DM type 2 (diabetes mellitus, type 2) Current Visit: Yes Status: Chronic Assessment and plan: January 24. Continue Lantus/Levemir and Accu-Cheks with SSI. January 30. He was started on 70/30 insulin a few days ago to better control daytime glucose readings. Dose will be increased and Lantus/Levemir dose slightly reduced. January 31. Increase 70/30 insulin and continue Accu-Cheks with SSI. February 03. Blood sugars improved but still suboptimally controlled. Increase 70/30 insulin to 40 units daily. Qualifiers: Diabetes mellitus ad terminal makeup operator insulin use: with ad terminal makeup operator use Diabetes mellitus complication status: with unspecified complications Qualified Code(s) : E11.8 - Type 2 diabetes mellitus with unspecified complications; Z79.4 - group home (current) use of insulin (10) Gout Current Visit: Yes Status: Chronic Assessment and plan: January 24. Uric acid level normal at 4.3. Qualifiers: Gout site: unspecified site Gout etiology: unspecified cause Chronicity: chronic Presence of tophus: without tophus Qualified Code(s): M1A.9XX0 - Chronic gout, unspecified, without tophus (tophi) (11) Elevated brain natriuretic peptide (BNP) level Current Visit: Yes Status: Acute Assessment and plan: January 24. Improved at 236. Continue present management January 30. Recheck labs in a.m. January 31. Further improved to 203. Increase isosorbide as per above. - Subjective Interval history: January 24. He has no new complaints and feels well. January 26. He has no new complaints and feels overall improved. January 28. He has no new complaints. January 31. He has no new complaints February 03. He has no new complaints. He feels he is stronger and making progress. - Constitutional Vitals: Temp Pulse Resp BP Pulse Ox 97.6 F 80 16 134/84 94 02/03/18 06:46 02/03/18 06:46 02/03/18 16:09 02/03/18 06:46 02/03/18 16:09 Exam: He is sitting on the side of bed resting comfortably. His affect is bright and cheerful. He does not appear dyspneic when talking. There is improvement in his lower legs from use of [place]. I reviewed his medications and lab results. Internal Medicine: Result - Labs CBC & Chem 7: 01/31/18 05:55 01/31/18 05:55 Consult Discharge Plan - Plan Referrals: Kd Moore [Primary Care Provider] - 1 week
[2018-02-03] MEDS: Insulin LISPRO 300 UNITS/3 ML VIAL SQ SCH (20:43)
[2018-02-03] MEDS: Ammonium Lactate 30 APPL/225 GM BOTTLE TP SCH (20:45)
[2018-02-04] MEDS: OLOPATADINE AER SCH ×3 (10:47→21:44)
[2018-02-04] MEDS: Aspirin 81 MG TAB.CHEW PO SCH (10:48)
[2018-02-04] MEDS: Azelastine 0.1% Nasal Spray 30 ML BOTTLE NS SCH ×2 (10:48→21:26)
[2018-02-04] MEDS: Isosorbide MONOnitrate (24 HR) 60 MG TAB.ER.24H PO SCH (10:49)
[2018-02-04] MEDS: Insulin NPH/REG 70/30 100 UNIT/ML (x5UNIT) SQ SCH (10:49)
[2018-02-04] MEDS: Insulin DETEMIR 100 UNIT/ML X5UNITS SQ SCH (10:49)
[2018-02-04] MEDS: Loratadine/Pseudophed (12 HR) 1 EACH TABLET PO PRN (10:50)
[2018-02-04] MEDS: Metoprolol XL (24 HR) Succ 50 MG TAB.ER.24H PO SCH (10:50)
[2018-02-04] MEDS: SAXAGLIPTIN PO SCH (10:50)
[2018-02-04] MEDS: predniSONE 20 MG TABLET PO SCH (10:50)
[2018-02-04] MEDS: *HR* OxyCODONE/APAP 5/325 TABLET PO PRN (10:50)
[2018-02-04] MEDS: Cholecalciferol (D-3) 1,000 UNIT TABLET PO SCH (10:50)
[2018-02-04] MEDS: Ammonium Lactate 30 APPL/225 GM BOTTLE TP SCH (21:27)
[2018-02-04] MEDS: Insulin LISPRO 300 UNITS/3 ML VIAL SQ SCH (21:28)
[2018-02-05] MEDS: Insulin NPH/REG 70/30 100 UNIT/ML (x5UNIT) SQ SCH (09:38)
[2018-02-05] MEDS: predniSONE 20 MG TABLET PO SCH (09:39)
[2018-02-05] MEDS: Aspirin 81 MG TAB.CHEW PO SCH (09:39)
[2018-02-05] MEDS: Isosorbide MONOnitrate (24 HR) 60 MG TAB.ER.24H PO SCH (09:39)
[2018-02-05] MEDS: Metoprolol XL (24 HR) Succ 50 MG TAB.ER.24H PO SCH (09:40)
[2018-02-05] MEDS: Cholecalciferol (D-3) 1,000 UNIT TABLET PO SCH (09:40)
[2018-02-05] MEDS: Azelastine 0.1% Nasal Spray 30 ML BOTTLE NS SCH ×2 (10:01→20:32)
[2018-02-05] MEDS: SAXAGLIPTIN PO SCH (10:02)
[2018-02-05] MEDS: OLOPATADINE AER SCH ×2 (10:02→20:33)
[2018-02-05] MEDS: Insulin DETEMIR 100 UNIT/ML X5UNITS SQ SCH (10:08)
[2018-02-05] MEDS: Loratadine/Pseudophed (12 HR) 1 EACH TABLET PO PRN (13:21)
[2018-02-05] MEDS: *HR* OxyCODONE/APAP 5/325 TABLET PO PRN (13:21)
[2018-02-05] MEDS: Insulin LISPRO 300 UNITS/3 ML VIAL SQ SCH (20:32)
[2018-02-05] MEDS: Ammonium Lactate 30 APPL/225 GM BOTTLE TP SCH (20:32)
[2018-02-06] MEDS: Isosorbide MONOnitrate (24 HR) 60 MG TAB.ER.24H PO SCH (07:51)
[2018-02-06] MEDS: Metoprolol XL (24 HR) Succ 50 MG TAB.ER.24H PO SCH (07:51)
[2018-02-06] MEDS: Aspirin 81 MG TAB.CHEW PO SCH (07:51)
[2018-02-06] MEDS: Cholecalciferol (D-3) 1,000 UNIT TABLET PO SCH (07:51)
[2018-02-06] MEDS: predniSONE 20 MG TABLET PO SCH (07:51)
[2018-02-06] MEDS: Azelastine 0.1% Nasal Spray 30 ML BOTTLE NS SCH ×2 (07:56→22:06)
[2018-02-06] MEDS: Insulin NPH/REG 70/30 100 UNIT/ML (x5UNIT) SQ SCH (07:57)
[2018-02-06] MEDS: Insulin DETEMIR 100 UNIT/ML X5UNITS SQ SCH (07:57)
[2018-02-06] MEDS: SAXAGLIPTIN PO SCH (07:58)
[2018-02-06] MEDS: OLOPATADINE AER SCH ×2 (07:58→22:10)
[2018-02-06] MEDS ORDERED: Insulin NPH/REG 70/30 100 UNIT/ML (x5UNIT) SQ SCH (16:00)
[2018-02-06] MEDS: Insulin LISPRO 300 UNITS/3 ML VIAL SQ SCH (22:07)
[2018-02-06] MEDS: Ammonium Lactate 30 APPL/225 GM BOTTLE TP SCH (22:08)
[2018-02-07] MEDS ORDERED: Insulin NPH/REG 70/30 100 UNIT/ML (x5UNIT) SQ SCH (09:00)
[2018-02-07] MEDS: Aspirin 81 MG TAB.CHEW PO SCH (09:04)
[2018-02-07] MEDS: Azelastine 0.1% Nasal Spray 30 ML BOTTLE NS SCH ×2 (09:05→20:10)
[2018-02-07] MEDS: Isosorbide MONOnitrate (24 HR) 60 MG TAB.ER.24H PO SCH (09:05)
[2018-02-07] MEDS: Insulin DETEMIR 100 UNIT/ML X5UNITS SQ SCH (09:05)
[2018-02-07] MEDS: Metoprolol XL (24 HR) Succ 50 MG TAB.ER.24H PO SCH (09:06)
[2018-02-07] MEDS: Cholecalciferol (D-3) 1,000 UNIT TABLET PO SCH (09:06)
[2018-02-07] MEDS: OLOPATADINE AER SCH ×2 (09:06→22:07)
[2018-02-07] MEDS: predniSONE 20 MG TABLET PO SCH (09:06)
[2018-02-07] MEDS: SAXAGLIPTIN PO SCH (09:06)
[2018-02-07] MEDS: *HR* OxyCODONE/APAP 5/325 TABLET PO PRN (09:45)
[2018-02-07] MEDS: Loratadine/Pseudophed (12 HR) 1 EACH TABLET PO PRN (09:45)
--- NOTE | 2018-02-07 16:42 | Internal Med Progress Note ---
Date of Encounter: 02/07/18 Time of Encounter: 16:30 - Assessment and plan (1) STEMI (ST elevation myocardial infarction) Current Visit: No Status: Acute Assessment and plan: January 24. Continue aspirin, Plavix, and now Imdur. January 31. Increase Imdur. Continue aspirin and Plavix. Qualifiers: Involved coronary artery: unspecified coronary artery Qualified Code(s): I21.3 - ST elevation (STEMI) myocardial infarction of unspecified site (2) Hypophosphatemia Current Visit: Yes Status: Acute Assessment and plan: January 24. Improved to 2.4. Continue to monitor as needed. January 30. Recheck labs in a.m. January 31. Phosphorus level normal at 2.9. (3) Macrocytic anemia Current Visit: No Status: Chronic Assessment and plan: January 24. Anemia testing showed iron 61, transferrin saturation 25%, transferrin 174, ferritin 310, B12 > 1500, and folate 12.9. Hemoglobin improved to 12.1. Continue to monitor as needed. (4) Non-small cell cancer of right lung Current Visit: No Status: Chronic Assessment and plan: January 24. As per oncologist. (5) PAF (paroxysmal atrial fibrillation) Current Visit: No Status: Acute Assessment and plan: January 24. Continue aspirin and Plavix. (6) EL treated with BiPAP Current Visit: No Status: Acute Assessment and plan: January 24. Continue BiPAP (7) Physical deconditioning Current Visit: Yes Status: Acute Assessment and plan: January 24. Continue therapy intervention. (8) Interstitial lung disease Current Visit: Yes Status: Acute Assessment and plan: January 24. Continue oxygen 30/11. (9) DM type 2 (diabetes mellitus, type 2) Current Visit: Yes Status: Chronic Assessment and plan: January 24. Continue Lantus/Levemir and Accu-Cheks with SSI. January 30. He was started on 70/30 insulin a few days ago to better control daytime glucose readings. Dose will be increased and Lantus/Levemir dose slightly reduced. January 31. Increase 70/30 insulin and continue Accu-Cheks with SSI. February 03. Blood sugars improved but still suboptimally controlled. Increase 70/30 insulin to 40 units daily. February 07. Blood sugars still inadequately controlled. Continue to increase 70 /30 insulin. Qualifiers: Diabetes mellitus senior care insulin use: with senior care use Diabetes mellitus complication status: with unspecified complications Qualified Code(s) : E11.8 - Type 2 diabetes mellitus with unspecified complications; Z79.4 - terminal computer operator (current) use of insulin (10) Gout Current Visit: Yes Status: Chronic Assessment and plan: January 24. Uric acid level normal at 4.3. Qualifiers: Gout site: unspecified site Gout etiology: unspecified cause Chronicity: chronic Presence of tophus: without tophus Qualified Code(s): M1A.9XX0 - Chronic gout, unspecified, without tophus (tophi) (11) Elevated brain natriuretic peptide (BNP) level Current Visit: Yes Status: Acute Assessment and plan: January 24. Improved at 236. Continue present management January 30. Recheck labs in a.m. January 31. Further improved to 203. Increase isosorbide as per above. - Subjective Interval history: January 24. He has no new complaints and feels well. January 26. He has no new complaints and feels overall improved. January 28. He has no new complaints. January 31. He has no new complaints February 03. He has no new complaints. He feels he is stronger and making progress. February 07. He has no new complaints and feels well. He had a home visit yesterday and states it went well. - Constitutional Vitals: Temp Pulse Resp BP Pulse Ox 98 F 83 16 113/65 96 02/07/18 07:23 02/07/18 07:23 02/07/18 16:18 02/07/18 07:23 02/07/18 16:18 Exam: He has a shallow denuded bulla on the left posterior calf area. The chronic venous stasis pigmentation changes/erythema of his lower legs is unchanged. His affect is cheerful. I reviewed his medications and lab results. Internal Medicine: Result - Labs CBC & Chem 7: 01/31/18 05:55 01/31/18 05:55 Consult Discharge Plan - Plan Referrals: Kd Moore [Primary Care Provider] - 1 week
[2018-02-07] MEDS: Ammonium Lactate 30 APPL/225 GM BOTTLE TP SCH (18:34)
[2018-02-07] MEDS: Insulin LISPRO 300 UNITS/3 ML VIAL SQ SCH (20:09)
[2018-02-08 05:04] LABS: Basophils # 0.1 K/mcL (0.0-0.2); Basophils % 0.5 %; Eosinophils # 0.4 K/mcL (0.0-0.6); Hematocrit 38.5 % (37.5-50.1); Hemoglobin 12.1 g/dL (12.9-16.9); Immature Granulocytes % 0.9 % (0-4); Lymphocytes # 1.8 K/mcL (0.6-4.6); Lymphocytes % 14.8 %; Mean Corpuscular HGB Conc 31.4 g/dL (31.6-35.5); Mean Corpuscular Hemoglobin 30.6 pg (28.0-33.3); Mean Corpuscular Volume 97.2 fL (83.0-100.0); Mean Platelet Volume 9.1 fL (9.4-12.4); Monocytes # 1.1 K/mcL (0.0-1.3); Monocytes % 8.8 %; Neutrophils # 8.8 K/mcL (1.6-8.9); Platelet Count 323 K/mcL (140-400); Red Blood Count 3.96 M/mcL (4.19-5.50); Red Cell Distribution Width 15.9 % (11.5-14.5)
[2018-02-08 05:18] LABS: BUN/Creatinine Ratio 27 (6-26); Blood Urea Nitrogen 23 mg/dL (8-23); Calcium 10.2 mg/dL (8.6-10.3); Carbon Dioxide 32 mEq/L (23-29); Chloride 101 mEq/L (98-107); Glucose 138 mg/dL (70-105); Osmolality,Calculated 294 (280-300); Potassium 4.1 mEq/L (3.5-5.1); Sodium 139 mEq/L (136-145); eGFR For Non-African Americans > 60 (> 60)
[2018-02-08] MEDS: Insulin DETEMIR 100 UNIT/ML X5UNITS SQ SCH (11:01)
[2018-02-08] MEDS: Metoprolol XL (24 HR) Succ 50 MG TAB.ER.24H PO SCH (11:02)
[2018-02-08] MEDS: Aspirin 81 MG TAB.CHEW PO SCH (11:02)
[2018-02-08] MEDS: predniSONE 20 MG TABLET PO SCH (11:02)
[2018-02-08] MEDS: SAXAGLIPTIN PO SCH (11:02)
[2018-02-08] MEDS: OLOPATADINE AER SCH (11:02)
[2018-02-08] MEDS: Cholecalciferol (D-3) 1,000 UNIT TABLET PO SCH (11:02)
[2018-02-08] MEDS: Bumetanide 1 MG TABLET PO SCH (11:02)
[2018-02-08] MEDS: Azelastine 0.1% Nasal Spray 30 ML BOTTLE NS SCH ×2 (11:02→21:37)
[2018-02-08] MEDS: Isosorbide MONOnitrate (24 HR) 60 MG TAB.ER.24H PO SCH (11:02)
[2018-02-08] MEDS: Insulin NPH/REG 70/30 100 UNIT/ML (x5UNIT) SQ SCH (11:02)
[2018-02-08] MEDS: Insulin LISPRO 300 UNITS/3 ML VIAL SQ SCH (21:37)
[2018-02-09 06:08] LABS: Basophils # 0.1 K/mcL (0.0-0.2); Basophils % 0.6 %; Eosinophils # 0.3 K/mcL (0.0-0.6); Eosinophils % 2.1 %; Hematocrit 41.5 % (37.5-50.1); Immature Granulocytes % 0.6 % (0-4); Lymphocytes # 3.2 K/mcL (0.6-4.6); Lymphocytes % 22.8 %; Mean Corpuscular HGB Conc 31.3 g/dL (31.6-35.5); Mean Corpuscular Hemoglobin 30.6 pg (28.0-33.3); Mean Corpuscular Volume 97.6 fL (83.0-100.0); Mean Platelet Volume 9.6 fL (9.4-12.4); Monocytes # 1.3 K/mcL (0.0-1.3); Neutrophils # 9.1 K/mcL (1.6-8.9); Platelet Count 388 K/mcL (140-400); Red Blood Count 4.25 M/mcL (4.19-5.50); Red Cell Distribution Width 16.2 % (11.5-14.5); Segmented Neutrophils % 64.9 %
[2018-02-09] MEDS: OLOPATADINE AER SCH (10:52)
[2018-02-09] MEDS ORDERED: Insulin NPH/REG 70/30 100 UNIT/ML (x5UNIT) SQ SCH (11:00)
[2018-02-09] MEDS: Azelastine 0.1% Nasal Spray 30 ML BOTTLE NS SCH ×2 (11:26→22:12)
[2018-02-09] MEDS: Aspirin 81 MG TAB.CHEW PO SCH (11:26)
[2018-02-09] MEDS: Cholecalciferol (D-3) 1,000 UNIT TABLET PO SCH (11:26)
[2018-02-09] MEDS: Metoprolol XL (24 HR) Succ 50 MG TAB.ER.24H PO SCH (11:26)
[2018-02-09] MEDS: predniSONE 20 MG TABLET PO SCH (11:26)
[2018-02-09] MEDS: Isosorbide MONOnitrate (24 HR) 60 MG TAB.ER.24H PO SCH (11:27)
[2018-02-09] MEDS: Bumetanide 1 MG TABLET PO SCH (11:28)
[2018-02-09] MEDS: Loratadine/Pseudophed (12 HR) 1 EACH TABLET PO PRN (11:40)
[2018-02-09] MEDS: Insulin DETEMIR 100 UNIT/ML X5UNITS SQ SCH (11:41)
[2018-02-09] MEDS: SAXAGLIPTIN PO SCH (11:42)
[2018-02-09] MEDS: *HR* OxyCODONE/APAP 5/325 TABLET PO PRN (11:43)
[2018-02-09] MEDS ORDERED: D5% in Water 1,000 ML IVC PRN (11:55)
[2018-02-09] MEDS ORDERED: Dextrose Gel 15 GM/37.5 ML TUBE PO PRN ×2 (11:55)
[2018-02-09] MEDS ORDERED: *HR* Dextrose 50 % in Water (Syg) 50 ML SYRINGE IVP PRN (11:55)
[2018-02-09] MEDS: Insulin LISPRO 300 UNITS/3 ML VIAL SQ SCH ×3 (17:38→22:14)
[2018-02-09] MEDS: Ammonium Lactate 30 APPL/225 GM BOTTLE TP SCH (17:42)
[2018-02-10] MEDS: Insulin DETEMIR 100 UNIT/ML X5UNITS SQ SCH (10:04)
[2018-02-10] MEDS: Insulin LISPRO 300 UNITS/3 ML VIAL SQ SCH ×5 (10:05→21:17)
[2018-02-10] MEDS: Azelastine 0.1% Nasal Spray 30 ML BOTTLE NS SCH ×2 (10:06→21:02)
[2018-02-10] MEDS: Cholecalciferol (D-3) 1,000 UNIT TABLET PO SCH (10:07)
[2018-02-10] MEDS: Isosorbide MONOnitrate (24 HR) 60 MG TAB.ER.24H PO SCH (10:07)
[2018-02-10] MEDS: Aspirin 81 MG TAB.CHEW PO SCH (10:07)
[2018-02-10] MEDS: Metoprolol XL (24 HR) Succ 50 MG TAB.ER.24H PO SCH (10:07)
[2018-02-10] MEDS: Loratadine/Pseudophed (12 HR) 1 EACH TABLET PO PRN (10:07)
[2018-02-10] MEDS: Bumetanide 1 MG TABLET PO SCH (10:08)
[2018-02-10] MEDS: OLOPATADINE AER SCH ×4 (10:54→21:18)
[2018-02-10] MEDS: SAXAGLIPTIN PO SCH (13:32)
[2018-02-10] MEDS: Insulin NPH/REG 70/30 100 UNIT/ML (x5UNIT) SQ SCH (13:33)
--- NOTE | 2018-02-10 14:50 | Internal Med Progress Note ---
Date of Encounter: 02/10/18 Time of Encounter: 14:40 - Assessment and plan (1) STEMI (ST elevation myocardial infarction) Current Visit: No Status: Acute Assessment and plan: January 24. Continue aspirin, Plavix, and now Imdur. January 31. Increase Imdur. Continue aspirin and Plavix. Qualifiers: Involved coronary artery: unspecified coronary artery Qualified Code(s): I21.3 - ST elevation (STEMI) myocardial infarction of unspecified site (2) Hypophosphatemia Current Visit: Yes Status: Acute Assessment and plan: January 24. Improved to 2.4. Continue to monitor as needed. January 30. Recheck labs in a.m. January 31. Phosphorus level normal at 2.9. (3) Macrocytic anemia Current Visit: No Status: Chronic Assessment and plan: January 24. Anemia testing showed iron 61, transferrin saturation 25%, transferrin 174, ferritin 310, B12 > 1500, and folate 12.9. Hemoglobin improved to 12.1. Continue to monitor as needed. February 10. Hemoglobin normal at 13.0. (4) Non-small cell cancer of right lung Current Visit: No Status: Chronic Assessment and plan: January 24. As per oncologist. (5) PAF (paroxysmal atrial fibrillation) Current Visit: No Status: Acute Assessment and plan: January 24. Continue aspirin and Plavix. (6) EL treated with BiPAP Current Visit: No Status: Acute Assessment and plan: January 24. Continue BiPAP (7) Physical deconditioning Current Visit: Yes Status: Acute Assessment and plan: January 24. Continue therapy intervention. February 10. Anticipate discharge home tomorrow with home health services. (8) Interstitial lung disease Current Visit: Yes Status: Acute Assessment and plan: January 24. Continue oxygen 30/11. (9) DM type 2 (diabetes mellitus, type 2) Current Visit: Yes Status: Chronic Assessment and plan: January 24. Continue Lantus/Levemir and Accu-Cheks with SSI. January 30. He was started on 70/30 insulin a few days ago to better control daytime glucose readings. Dose will be increased and Lantus/Levemir dose slightly reduced. January 31. Increase 70/30 insulin and continue Accu-Cheks with SSI. February 03. Blood sugars improved but still suboptimally controlled. Increase 70/30 insulin to 40 units daily. February 07. Blood sugars still inadequately controlled. Continue to increase 70 /30 insulin. February 10. He declined 70/30 insulin use because of hypoglycemia. Qualifiers: Diabetes mellitus termite control servicer insulin use: with termite control servicer use Diabetes mellitus complication status: with unspecified complications Qualified Code(s) : E11.8 - Type 2 diabetes mellitus with unspecified complications; Z79.4 - buttermaker (current) use of insulin (10) Gout Current Visit: Yes Status: Chronic Assessment and plan: January 24. Uric acid level normal at 4.3. Qualifiers: Gout site: unspecified site Gout etiology: unspecified cause Chronicity: chronic Presence of tophus: without tophus Qualified Code(s): M1A.9XX0 - Chronic gout, unspecified, without tophus (tophi) (11) Elevated brain natriuretic peptide (BNP) level Current Visit: Yes Status: Acute Assessment and plan: January 24. Improved at 236. Continue present management January 30. Recheck labs in a.m. January 31. Further improved to 203. Increase isosorbide as per above. - Subjective Interval history: January 24. He has no new complaints and feels well. January 26. He has no new complaints and feels overall improved. January 28. He has no new complaints. January 31. He has no new complaints February 03. He has no new complaints. He feels he is stronger and making progress. February 07. He has no new complaints and feels well. He had a home visit yesterday and states it went well. February 10. He has no new complaints. He had a cough productive of whitish phlegm past 24-48 hours. He denies yellow-green or blood-tinged mucus. He feels his dyspnea is overall lessened. - Constitutional Vitals: Temp Pulse Resp BP Pulse Ox 98.6 F 96 18 112/69 93 02/10/18 06:56 02/10/18 06:56 02/10/18 09:25 02/10/18 06:56 02/10/18 09:25 Exam: He is resting comfortably in bed and appears in no acute distress. He did not cough during examination. His affect is bright and cheerful. I reviewed his medications and lab results. Internal Medicine: Result - Labs CBC & Chem 7: 02/09/18 04:20 10/02/18 04:30 Consult Discharge Plan - Plan Referrals: Kd Moore [Primary Care Provider] - 1 week
[2018-02-11 06:57] VITALS: BP 140/82
[2018-02-11] MEDS: Metoprolol XL (24 HR) Succ 50 MG TAB.ER.24H PO SCH (08:32)
[2018-02-11] MEDS: Azelastine 0.1% Nasal Spray 30 ML BOTTLE NS SCH (08:32)
[2018-02-11] MEDS: Bumetanide 1 MG TABLET PO SCH (08:32)
[2018-02-11] MEDS: Isosorbide MONOnitrate (24 HR) 60 MG TAB.ER.24H PO SCH (08:33)
[2018-02-11] MEDS: Loratadine/Pseudophed (12 HR) 1 EACH TABLET PO PRN (08:33)
[2018-02-11] MEDS: Cholecalciferol (D-3) 1,000 UNIT TABLET PO SCH (08:33)
[2018-02-11] MEDS: Insulin DETEMIR 100 UNIT/ML X5UNITS SQ SCH (08:33)
[2018-02-11] MEDS: Aspirin 81 MG TAB.CHEW PO SCH (08:33)
[2018-02-11] MEDS: *HR* OxyCODONE/APAP 5/325 TABLET PO PRN (08:49)
[2018-02-11] MEDS: Insulin LISPRO 300 UNITS/3 ML VIAL SQ SCH (08:51)
[2018-02-11] MEDS: SAXAGLIPTIN PO SCH (08:52)
[2018-02-11] MEDS: OLOPATADINE AER SCH (08:52)
--- NOTE | 2018-02-11 10:02 | Discharge Summary ---
Date of Encounter: 02/11/18 Time of Encounter: 09:50 - Discharge Diagnosis (1) STEMI (ST elevation myocardial infarction) Priority: Primary Status: Acute Qualifiers: Involved coronary artery: unspecified coronary artery Qualified Code(s): I21.3 - ST elevation (STEMI) myocardial infarction of unspecified site (2) Hypophosphatemia Priority: Secondary Status: Resolved (3) Macrocytic anemia Priority: Secondary Status: Resolved (4) Non-small cell cancer of right lung Priority: Secondary Status: Chronic (5) PAF (paroxysmal atrial fibrillation) Priority: Secondary Status: Chronic (6) EL treated with BiPAP Priority: Secondary Status: Chronic (7) Physical deconditioning Priority: Secondary Status: Chronic (8) Interstitial lung disease Priority: Secondary Status: Chronic (9) DM type 2 (diabetes mellitus, type 2) Priority: Secondary Status: Chronic Qualifiers: Diabetes mellitus terminal carman insulin use: with terminal carman use Diabetes mellitus complication status: with unspecified complications Qualified Code(s) : E11.8 - Type 2 diabetes mellitus with unspecified complications; Z79.4 - terminal carman (current) use of insulin (10) Gout Priority: Secondary Status: Chronic Qualifiers: Gout site: unspecified site Gout etiology: unspecified cause Chronicity: chronic Presence of tophus: without tophus Qualified Code(s): M1A.9XX0 - Chronic gout, unspecified, without tophus (tophi) (11) Elevated brain natriuretic peptide (BNP) level Priority: Secondary Status: Acute Hospital course: Mr. Roldan is a 72 year old male who was hospitalized at [facility] January 17 after presenting with STEMI. He underwent LHC which showed thrombus causing 60 % stenosis in the SVG to RPDA graft. The LIND to mid LAD was patent. The SVG to first marginal was patent. [place] vessels showed 70% stenosis in LMCA, 50% stenosis in proximal circumflex, and 100% stenoses in proximal RCA and proximal LAD. He was given IV Aggrastat for 24 hours and continued on Brilinta. No additional intervention was done. He had an 18 beat run of NSVT. Following stabilization he was transferred to [facility] swing bed for rehabilitation therapy. Initial orders were written by the discharging physicians at [facility]. I saw him on January 23 and performed the swing bed history and physical. He had physical therapy and occupational therapy evaluations with ongoing intervention. He made satisfactory progress with increase in strength and endurance. On February 11 he was felt stable for discharge home. He will have home health services ordered. He was started on Imdur and continued on Toprol, aspirin and Plavix. He had no chest pain or other cardiac complications. BN peptide was stable at 256 on 06/2017. He continued on oxygen 24/7 and used BiPAP at nighttime and as needed during the daytime for EL. He will be discharged and follow with his PCP within 1 week. - Time Spent with Patient Total time spent providing and/or coordinating discharge services: - Discharge Medications Prescriptions: Isosorbide MONOnitrate (24 HR) [Imdur] 60 mg PO DAILY #30 tab.er.24h Home Medications: Nitroglycerin [Nitrostat] 0.4 mg SL PRN PRN 03/25/15 [History] Ergocalciferol (VITAMIN D2) [Vitamin D2 (50,000 UNIT)] 50,000 unit PO QWEEK [History] Aspirin 81 mg PO DAILY 09/23/15 [History] Cyanocobalamin (B-12) [Vitamin B12] 1,000 mcg IM QMONTH 07/23/16 [History] Insulin Lispro Protamin/Lispro [Humalog Mix 75-25 Vial] 12 unit SQ QAM 07/23/16 [History] Insulin Lispro Protamin/Lispro [Humalog Mix 75-25 Vial] 12 unit SQ QPM 07/23/16 [History] Ipratropium/Albuterol Neb [Duoneb] 3 ml IH Q6HR PRN 07/23/16 [History] Saxagliptin HCl [Onglyza] 2.5 mg PO DAILY 07/23/16 [History] Azelastine 0.1% Nasal [place] [Astelin] 1 puff NS BID 11/16/17 [History] Oxycodone HCl/Acetaminophen [Percocet 5-325 mg Tablet] 1 each PO Q6HR PRN [History] Albuterol Sulfate [Ventolin Hfa] 2 puff IH Q6H PRN 01/18/18 [History] Levothyroxine [Synthroid] 150 mcg PO DAILY #30 tablet 01/18/18 [Rx] Nivolumab [Opdivo] 40 mg IV QMONTH 01/18/18 [History] Olopatadine HCl [Patanase] 30.5 gm NS BID 01/18/18 [History] Clopidogrel [Plavix] 75 mg PO DAILY tablet 01/22/18 [Rx] Metoprolol XL (24 HR) Succ [Toprol Xl] 200 mg PO DAILY 01/23/18 [History] Bumetanide [Bumex] 2 mg PO DAILY #0 02/11/18 [Rx] Insulin Glargine,Hum.rec.anlog [Lantus Solostar] 52 unit SQ QAM #0 02/11/18 [Rx] Isosorbide MONOnitrate (24 HR) [Imdur] 60 mg PO DAILY #30 tab.er.24h 02/11/18 [ Rx] Allergies/Adverse Reactions: 3 Allergy/AdvReac Type Severity Reaction Status Date / Time Amoxicillin Allergy Hives Verified 01/17/18 18:39 adhesive AdvReac Rash Verified 01/17/18 18:39 Date of admission: 01/22/18 16:40 Primary care physician: Kd Moore Consults: 01/22/18 16:52 Consult to Occupational Therapy [CONS] Routine Comment: EVALUATE FOR PLAN OF CARE Reason for Consult: STEMI REHAB Does patient have active BEDREST order?: No Is patient medically & hemodynamically stable?: Yes Consult to Physical Therapy [CONS] Routine Comment: EVALUATE FOR PLAN OF CARE Reason for Consult: STEMI REHAB Does patient have active BEDREST order?: No Is patient medically & hemodynamically stable?: Yes Consult to Mail Processing Associate [CONS] Routine Reason for SW Consult: DISCHARGE PLANNING - Constitutional Vitals: Temp Pulse Resp BP Pulse Ox 98.4 F 94 18 140/82 99 02/11/18 06:57 02/11/18 06:57 02/11/18 08:50 02/11/18 06:57 02/11/18 08:50 - Patient Status Disposition: Home Health Service - Discharge Instructions Follow Up With: Kd Moore [Primary Care Provider] - 1 week - Diet and Activity Activity: as per physical therapy, wear oxygen at all times Diet: diabetic diet
--- NOTE | 2018-02-11 10:11 | Physician Discharge Referral ---
Home Health/Hosp Referral Info Transfer to: Home Health Attending Provider: Alfonzo Provider in Charge Post Discharge: PCP (Kd Moore) - Diagnosis (1) STEMI (ST elevation myocardial infarction) Priority: Primary Status: Acute (2) Hypophosphatemia Priority: Secondary Status: Resolved (3) Macrocytic anemia Priority: Secondary Status: Resolved (4) Non-small cell cancer of right lung Priority: Secondary Status: Chronic (5) PAF (paroxysmal atrial fibrillation) Priority: Secondary Status: Chronic (6) EL treated with BiPAP Priority: Secondary Status: Chronic (7) Physical deconditioning Priority: Secondary Status: Chronic (8) Interstitial lung disease Priority: Secondary Status: Chronic (9) DM type 2 (diabetes mellitus, type 2) Priority: Secondary Status: Chronic (10) Gout Priority: Secondary Status: Chronic (11) Elevated brain natriuretic peptide (BNP) level Priority: Secondary Status: Acute - Respiratory Orders Oxygen / L per min (30/11 at flow rate to keep sat greater than 90%. Use BiPAP at bedtime and when necessary during the daytime.) Smoking Cessation: Smoking cessation has been advised. For more information, call the [place] Tobacco Quit Line at 0-622-FYJJ-NOW. - Diet/Nutrition Diet/Nutrition Orders: No Concentrated Sweets - Activity Activity Orders: Walker - Services Needed Following services are medically necessary services: Nursing, Home Health Aide, Physical Therapy, Occupational Therapy - Transfer Medications Prescriptions: Isosorbide MONOnitrate (24 HR) [Imdur] 60 mg PO DAILY #30 tab.er.24h Home Medications: Nitroglycerin [Nitrostat] 0.4 mg SL PRN PRN 03/25/15 [History] Ergocalciferol (VITAMIN D2) [Vitamin D2 (50,000 UNIT)] 50,000 unit PO QWEEK [History] Aspirin 81 mg PO DAILY 09/23/15 [History] Cyanocobalamin (B-12) [Vitamin B12] 1,000 mcg IM QMONTH 07/23/16 [History] Insulin Lispro Protamin/Lispro [Humalog Mix 75-25 Vial] 12 unit SQ QAM 07/23/16 [History] Insulin Lispro Protamin/Lispro [Humalog Mix 75-25 Vial] 12 unit SQ QPM 07/23/16 [History] Ipratropium/Albuterol Neb [Duoneb] 3 ml IH Q6HR PRN 07/23/16 [History] Saxagliptin HCl [Onglyza] 2.5 mg PO DAILY 07/23/16 [History] Azelastine 0.1% Nasal [place] [Astelin] 1 puff NS BID 11/16/17 [History] Oxycodone HCl/Acetaminophen [Percocet 5-325 mg Tablet] 1 each PO Q6HR PRN [History] Albuterol Sulfate [Ventolin Hfa] 2 puff IH Q6H PRN 01/18/18 [History] Levothyroxine [Synthroid] 150 mcg PO DAILY #30 tablet 01/18/18 [Rx] Nivolumab [Opdivo] 40 mg IV QMONTH 01/18/18 [History] Olopatadine HCl [Patanase] 30.5 gm NS BID 01/18/18 [History] Clopidogrel [Plavix] 75 mg PO DAILY tablet 01/22/18 [Rx] Metoprolol XL (24 HR) Succ [Toprol Xl] 200 mg PO DAILY 01/23/18 [History] Bumetanide [Bumex] 2 mg PO DAILY #0 02/11/18 [Rx] Insulin Glargine,Hum.rec.anlog [Lantus Solostar] 52 unit SQ QAM #0 02/11/18 [Rx] Isosorbide MONOnitrate (24 HR) [Imdur] 60 mg PO DAILY #30 tab.er.24h 02/11/18 [ Rx] Allergies/Adverse Reactions: 3 Allergy/AdvReac Type Severity Reaction Status Date / Time Amoxicillin Allergy Hives Verified 01/17/18 18:39 adhesive AdvReac Rash Verified 01/17/18 18:39 Certification: Further, I certify that my clinical findings support that this patient is homebound (i.e. absences from home require considerable and taxing effort and are for medical reasons or quaker services or infrequently or short duration when for other reasons) because: Homebound Reason: Leaving home requires considerable and taxing effort due to condition (Significantly impaired walking ability, ASHD, EL) Attestation: My signature below is to certify that this patient is under my care and that I, or nurse practitioner, or a physician's gynecological assistant working with me, has a face-to -face encounter with this patient.
== END 2018-02-11 12:56 | disposition home health service (06) | DRG 281 ==
LOC: INPPIK 16:40
PROVIDERS: ADMIT Internal Medicine; ATTEND Internal Medicine